=== PATIENT | female | born 1995 | race African-American/Black ===

== ENCOUNTER 2016-11-13 18:12 | Inpatient (IN) | payer MEDICAID ==
[~2016-11-13] VITALS: Ht 157.5 cm; Wt 73.5 kg
[~2016-11-13 18:12] MED LIST: BUPIVACA/EPI 0.25% PF 30ML NERVEBLOCK ONE
[2016-11-13] MEDS ORDERED: FAMOTIDINE 20 MG INJ ONE (21:26)
[2016-11-13] MEDS ORDERED: SODIUM CHLORIDE 0.9% 1,000 ML ONE (21:26)
[2016-11-13] MEDS ORDERED: KETOROLAC 30 MG/ML VIAL ONE (21:26)
[2016-11-13] MEDS ORDERED: ONDANSETRON 4 MG VIAL ONE (21:26)
[2016-11-13] MEDS ORDERED: MORPHINE 2 MG/ML SYR IV PRN (23:50)
[2016-11-13] MEDS ORDERED: MORPHINE 4 MG/ML SYR IV PRN (23:50)
[2016-11-13] MEDS ORDERED: ONDANSETRON 4 MG VIAL IV PUSH PRN (23:50)
[2016-11-14] VITALS (19 sets, daily range): BP systolic 93–130; RESP 15–21; TEMP 97.3–99.1; Ht 157.5 cm; Wt 73.5 kg
[2016-11-14] MEDS: SOD CHLOR 0.9% 1000 ML IV SCH ×2 (00:46→08:54)
[2016-11-14] MEDS: PIPERACIL/TAZO 3.375GM/50ML 50 ML IV SCH ×5 (01:00→23:34)
[2016-11-14] MEDS ORDERED: Flu Vaccine Quadrivalent 60 MCG/0.5 ML IM.VACC ONE (01:00)
[2016-11-14] MEDS ORDERED: GLYCOPYRROLATE 0.2 MG/ML VIAL IV ONE (09:40)
[2016-11-14] MEDS ORDERED: MIDAZOLAM 2 MG/2 ML INJ IV ONE (09:40)
[2016-11-14] MEDS ORDERED: LIDOCAINE 1% BUFFERED 1 ML SYR INTRADERM PRN (09:40)
[2016-11-14] MEDS ORDERED: LACT RINGERS 1,000 ML IV SCH (09:40)
[2016-11-14] MEDS ORDERED: MIDAZOLAM 2 MG/2 ML INJ ONE (15:54)
[2016-11-14] MEDS ORDERED: MEPERIDINE 25 MG/ML IV PRN (16:40)
[2016-11-14] MEDS ORDERED: MORPHINE 4 MG/ML SYR IV PRN ×2 (16:40→17:25)
[2016-11-14] MEDS ORDERED: OXYCODONE 5 MG TAB PO PRN (16:40)
[2016-11-14] MEDS ORDERED: MORPHINE 2 MG/ML SYR IV PRN (16:40)
[2016-11-14] MEDS ORDERED: ONDANSETRON 4 MG VIAL IV PRN ×2 (16:40→17:15)
[2016-11-14] MEDS ORDERED: DILAUDID 1 MG/ML AMP IV PRN (16:40)
[2016-11-14] MEDS ORDERED: SALINE FLUSH 10 ML FLUSH PRN (17:15)
[2016-11-14] MEDS ORDERED: SODIUM CHLORIDE 0.9% 1,000 ML IV SCH (17:15)
[2016-11-14] MEDS: OXYCODONE 5 MG TAB PO PRN ×2 (18:16→22:22)
[2016-11-14] MEDS: SALINE FLUSH 10 ML FLUSH SCH (20:00)
[2016-11-14] MEDS: MORPHINE 2 MG/ML SYR IV PRN (20:20)
[2016-11-15 03:19] VITALS: BP_SYST 96; RESP 16; TEMP 98.2
[2016-11-15] MEDS ORDERED: SODIUM CHLORIDE 0.9% FLUSH BAG 500 ML IV SCH (06:00)
[2016-11-15] MEDS: OXYCODONE 5 MG TAB PO PRN (06:38)
[2016-11-15] MEDS: PIPERACIL/TAZO 3.375GM/50ML 50 ML IV SCH ×2 (06:39→12:00)
[2016-11-15 07:47] VITALS: BP_SYST 115; RESP 16; TEMP 98.2
[2016-11-15] MEDS: SALINE FLUSH 10 ML FLUSH SCH (08:12)
[2016-11-15] MEDS: MORPHINE 2 MG/ML SYR IV PRN (08:12)
[2016-11-15 09:23] VITALS: BP_SYST 115; RESP 16; TEMP 98.2
[2016-11-15] MEDS ORDERED: PROPOFOL 20 ML PER ML IV ONE (10:34)
[2016-11-15] MEDS ORDERED: GLYCOPYRROLATE 0.2 MG/ML VIAL IV ONE (10:34)
[2016-11-15] MEDS ORDERED: FENTANYL 100 MCG/2 ML AMP IV ONE (10:34)
[2016-11-15] MEDS ORDERED: ACETAMINOPHEN 1,000 MG/100 ML IV ONE (10:34)
[2016-11-15] MEDS ORDERED: DEXAMETHASONE 4 MG/ML VIAL IV ONE (10:34)
[2016-11-15] MEDS ORDERED: NEOSTIGMINE 10 MG/10 ML VIAL IV ONE (10:34)
[2016-11-15] MEDS ORDERED: ONDANSETRON 4 MG VIAL IV PUSH ONE (10:34)
[2016-11-15] MEDS ORDERED: ROCURONIUM 50 MG VIAL IV ONE (10:34)
[2016-11-15] MEDS ORDERED: LIDOCAINE 2% SYR 5 ML IV ONE (10:34)
[2016-11-15 11:49] VITALS: BP_SYST 94; RESP 16; TEMP 98.6
== END 2016-11-15 14:00 | disposition home or self-care (01) | DRG 343 ==
LOC: ENRESERVDT → ENRESERVTM → ER 18:12 → EMR 23:33 → 5THE 11-14 00:25 → OBSVTOIN 11-14 17:14
PROVIDERS: ADMIT Surgery; ATTEND Surgery
PROC: 0DTJ4ZZ Resection of Appendix, Percutaneous Endoscopic Approach (ICD-10-PCS; principal; 2016-11-14 16:24)
DX: K37 Unspecified appendicitis (principal)
CPT/HCPCS: 36415; 74176; 80053; 81001; 83690; 84703; 85025; 87088; 87804; 88304; 96361; 96374; 96375